=== PATIENT | female | born 1985 | race American Indian/Alaskan Native ===

== ENCOUNTER 2021-05-06 09:06 | Day surgery (SDC) | payer OTHER ==
[2021-05-04 10:40] LABS: Mean Corpuscular HGB Conc 27 % (30-34); Platelet Count 370 K/mm3 (140-440); Red Blood Count 4.05 M/mm3 (3.65-5.03)
[2021-05-04 10:46] LABS: Hematocrit 21.4 % (30.3-42.9); Hemoglobin 5.7 gm/dl (10.1-14.3); Mean Corpuscular Volume 53 fl (79-97); Red Cell Distribution Width 22.9 % (13.2-15.2)
--- NOTE | 2021-05-04 10:55 | Anesthesia Consultation ---
Anesthesia Consult and Med Hx Date of service: 05/06/21 - Airway Anesthetic Teeth Evaluation: Chipped, Caps ROM Head & Neck: Adequate Mental/Hyoid Distance: Adequate Mallampati Class: Class III Intubation Access Assessment: Probably Good - Pre-Operative Health Status ASA Pre-Surgery Classification: ASA3 Proposed Anesthetic Plan: General - Pulmonary Hx Smoking: No Hx Respiratory Symptoms: Yes (OCHOA) SOB: Yes (Walking stairs or further than normal) Hx Sleep Apnea: No - Cardiovascular System Hx Hypertension: Yes (Past hx, has not taken meds for 10 yrs) - Central Nervous System Hx Psychiatric Problems: No - Gastrointestinal Hx Gastroesophageal Reflux Disease: No - Hematic Hx Anemia: Yes (Hgb-5.7) Hx Sickle Cell Disease: No - Other Systems Hx Cancer: No Hx Obesity: Yes (BMI 66.1)
--- NOTE | 2021-05-05 09:02 | Electrocardiograph Report ---
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
--- NOTE | 2021-05-06 08:19 | Short Stay Summary ---
Short Stay Documentation Date of service: 05/06/21 Narrative H&P: 36y/o with unwanted fertility and dysfunctional uterine bleeding and menorrhagia. The patient underwent an endometrial biopsy with benign findings. The patient is aware she may not be able to conceive in the future after the ablation. The patient has failed medical management. - History Principal diagnosis: Dysfunctional uterine bleeding Past Medical History: anemia, hypertension, other (morbid obesity; ) Past Surgical History: No surgical history Social history: - Allergies and Medications Current Medications: Allergies No Known Allergies Allergy (Unverified 05/01/21 16:17) Home Medications Medication Instructions Recorded Confirmed Last Taken Type Multivitamin [Multiple Vitamins] 1 each PO DAILY 05/01/21 05/01/21 Unknown History Active Medications Lactated Ringer's (Lactated Ringers) 1,000 mls @ 125 mls/hr IV DIRECT MELISSA Sodium Chloride (Nacl 0.9% 500 Ml) 500 mls @ 0 mls/hr IV ONCE ONE Stop: 05/06/21 09:01 Midazolam HCl (Midazolam 2 Mg/2 Ml Inj) 2 mg IV PREOP NR Stop: 05/06/21 23:59 - Physical exam General appearance: no acute distress Integumentary: no rash HEENT: Atraumatic Lungs: Clear to auscultation Breasts: deferred Heart: Regular rate Gastrointestinal: normal Female Genitourinary: deferred - Brief post op/procedure progress note Date of procedure: 05/06/21 Pre-op diagnosis: Dysfunctional uterine bleeding Post-op diagnosis: same Procedure: Hysteroscopy Endometrial ablation via NovaSure Anesthesia: GETA Surgeon: JAROCHO MENDEZ Estimated blood loss: minimal Pathology: none Specimen disposition: to lab Condition: stable - Hospital course Hospital course: The patient was admitted the day of surgery underwent a hysteroscopy and NovaSure. Please see operative note for details of surgery. Her postoperative course was uneventful. - Disposition Condition at discharge: Good Disposition: 01 HOME / SELF CARE / HOMELESS Short Stay Discharge Plan Activity: other (Pelvic rest for 1 week) Diet: regular Additional Instructions: Patient may schedule follow-up with Dr. Mendez in 4-week
[~2021-05-06 09:06] MED LIST: LACTATED RINGERS 1,000 ML IV SCH; MIDAZOLAM 2 MG/2 ML INJ IV NR; SODIUM CHLORIDE 0.9% 500 ML 500 ML IV ONE
[2021-05-06] MEDS ORDERED: HYDROmorphone 1 MG/1 ML INJ IV PRN ×2 (10:56)
--- NOTE | 2021-05-06 10:57 | Anesthesia Day of Surgery ---
Anesthesia Day of Surgery - Day of Surgery Patient Examined: Yes Patient H&P Reviewed: Yes Patient is NPO: Yes
[2021-05-06] MEDS ORDERED: ONDANSETRON 4 MG/2 ML INJ IV PRN (11:00)
[2021-05-06] MEDS ORDERED: LIDOCAINE MPF (2%) 20 MG/1 ML VIAL 5 ML ONE (14:45)
[2021-05-06] MEDS ORDERED: propofoL 200 MG/20 ML VIAL IV ONE ×2 (14:45→15:39)
[2021-05-06] MEDS ORDERED: fentaNYL 100 MCG/2 ML INJ ONE ×2 (14:45→15:49)
[2021-05-06] MEDS ORDERED: dexAMETHasone 20 MG/5 ML VIAL ONE (15:49)
[2021-05-06] MEDS ORDERED: ONDANSETRON 4 MG/2 ML INJ ONE (15:49)
[2021-05-06] MEDS ORDERED: KETOROLAC 30 MG/1 ML INJ ONE (15:49)
[2021-05-06] MEDS ORDERED: SODIUM CHLORIDE 0.9% IRR 1,500 ML BOTTLE IR ONE (15:56)
[2021-05-06] MEDS ORDERED: SODIUM CHLORIDE 0.9% IRRIG SOLN 2000 ML IR ONE (15:56)
--- NOTE | 2021-05-06 15:58 | Operative Report ---
Operative Report Operative Report: Date of procedure: 05/06/2021 Pre-operative diagnosis: Dysfunctional uterine bleeding Post-operative diagnosis: Same as above Procedure name(s): Hysteroscopy; endometrial ablation via NovaSure Surgeon: Veda Bardales M.D. Airline Reservationist: None Anesthesia: LMA Findings thickened and lush endometrium Indication: 36-year-old -0-0-1 with a history of dysfunctional uterine bleeding. Procedure The patient was taken to the operating room and given general tracheal anesthesia without complication. The patient was prepped and draped in a normal sterile fashion. A bivalve speculum was placed in the patient's vagina single- tooth tenaculums placed on the anterior lip of the cervix. The cervical os was dilated with graduated dilators. A uterine sound was inserted. The hysteroscope was then placed. Insufflation of the uterine cavity was performed with normal saline. Gen. survey of the uterine cavity revealed thickened endometrium. The hysteroscope was then removed. The NovaSure device was then inserted. The endometrial length was 6.5 cm and the uterine width was 3.5 cm. The device was engaged and it passed the surveillance of the uterine cavity. The NovaSure device was then deployed with a energy of 125 W that lasted for 1 minute 26 seconds. The NovaSure device was then removed. The hysteroscope was again reinserted. There was evidence of charring of the endometrial surface. The remainder of the vaginal instruments were then removed atraumatically. The patient was then successfully extubated taken to the recovery room. All sponge laps and needle counts were correct 2.
--- NOTE | 2021-05-06 16:25 | Post Anesthesia Evaluation ---
- Post Anesthesia Evaluation Patient Participated: Yes Airway Patent: Yes Stable Respiratory Function: Yes Nausea/Vomiting: No Temp > 96.8F: Yes Pain Manageable: Yes Adequeate Hydration: Yes Anesthesia Complications: No Block Receding Appropriately: Not Applicable Patient on Ventilator: No
[2021-05-06 17:29] VITALS: BP 123/59
== END 2021-05-06 17:25 | disposition home or self-care (01) ==
LOC: OR 09:06
PROVIDERS: ATTEND Obstetrics & Gynecology
DX: N93.8 Other specified abnormal uterine and vaginal bleeding (principal); I10 Essential (primary) hypertension; E66.9 Obesity, unspecified; Z98.890 Other specified postprocedural states; Z79.899 Other long term (current) drug therapy; Z68.44 Body mass index [BMI] 60.0-69.9, adult; Z86.2 Personal history of diseases of the blood and blood-forming organs and certain disorders involving the immune mechanism; Z20.822 Contact with and (suspected) exposure to COVID-19
CPT/HCPCS: 36415; 36430; 58563; 84703; 85027; 86850; 86900; 86901; 86920; 93005; 93010; J1100; J1170; J1885; J2250; J2405; J2704; J3010; J3490; J7040; J7120; P9016; U0003